=== PATIENT | male | born 1995 | race Caucasian/White ===

== ENCOUNTER 2019-04-03 06:14 | Emergency (ER) | payer OTHER ==
[2019-04-03 06:48] VITALS: BP 131/79; PULSE 116; TEMP 100; BMI 21.1
[2019-04-03] MEDS ORDERED: ONDANSETRON *ODT* 4 MG TABLET SL ONE (08:08)
[2019-04-03] MEDS ORDERED: ONDANSETRON *ODT* 4 MG TABLET ONE (08:09)
--- NOTE | 2019-04-03 08:30 | PDOC ---
History of Present Illness - General History Source: Patient Exam Limitations: Clinical Condition - History of Present Illness Initial Comments: 04/03/19 08:27 Patient with no significant past medical history present with complaint of 1 day history of nasal congestion, sore throat, body aches, fever, chills, intermittent headache and nausea. Patient report one episode of loose stool yesterday. Denies recent travel or sick contact. Patient did not get a flu vaccine. Patient did not take anything for symptoms Is this a multiple visit Asthma Patient?: No Timing/Duration: 24 hours <Reyes William - Last Filed: 04/03/19 09:34> <Bari Crowder - Last Filed: 04/03/19 11:57> - General Chief Complaint: Vomiting/Diarrhea Stated Complaint: FLU LIKE SYMPTOMS Time Seen by Provider: 04/03/19 07:47 Past History - Past Medical History COPD: No - Psycho Social/Smoking Cessation Hx Smoking History: Never smoked <Reyes William - Last Filed: 04/03/19 09:34> <Bari Crowder - Last Filed: 04/03/19 11:57> - Past Medical History Allergies/Adverse Reactions: Allergies Allergy/AdvReac Type Severity Reaction Status Date / Time No Known Allergies Allergy Verified 04/03/19 06:44 Home Medications: Ambulatory Orders Benzonatate [Tessalon Pearls -] 100 mg PO Q8H PRN #20 capsule 04/03/19 Ipratropium [place] 2 spray NS BID PRN #1 spray 04/03/19 Ondansetron [Zofran *Odt*] 4 mg SL Q8H #12 od.tablet 04/03/19 Oseltamivir Phosphate [Tamiflu -] 75 mg PO DAILY #10 capsule 04/03/19 Review of Systems - Review of Systems Able to Perform ROS?: Yes Is the patient limited [place] proficient: No Constitutional: Yes: Chills, Fever, Malaise HEENTM: Yes: Symptoms Reported, See HPI, Nose Congestion, Throat Pain. No: Eye Pain, Blurred Vision, Tearing, Recent change in vision, Double Vision, Cataracts , Ear Pain, Ocular Prothesis, Ear Discharge, Nose Pain, Tinnitus, Nose Bleeding , Hearing Loss, Throat Swelling, Mouth Pain, Dental Problems, Difficulty Swallowing, Mouth Swelling, Other Respiratory: Yes: Symptoms reported, See HPI, Cough. No: Orthopnea, Shortness of Breath, SOB with Exertion, SOB at Rest, Stridor, Wheezing, Productive cough, Hemoptysis, Other Cardiac (ROS): No: Symptoms Reported, See HPI, Chest Pain, Edema, Irregular Heart Rate, Lightheadedness, Palpitations, Syncope, Chest Tightness, Other ABD/GI: Yes: Symptoms Reported, See HPI, Diarrhea, Nausea. No: Blood Streaked Bowels, Constipated, Difficulty Swallowing, Poor Appetite, Vomiting, Indigestion , Abdominal cramping Musculoskeletal: No: Symptoms Reported Integumentary: No: Symptoms Reported, Rash Neurological: Yes: Symptoms reported, See HPI, Headache. No: Numbness, Paresthesia, Pre-Existing Deficit, Weakness, Dizziness All Other Systems: Reviewed and Negative <Reyes William - Last Filed: 04/03/19 09:34> *Physical Exam - Vital Signs Last Vital Signs Temp Pulse Resp BP Pulse Ox 100.0 F H 116 H 18 131/79 97 04/03/19 06:41 04/03/19 06:41 04/03/19 06:41 04/03/19 06:41 04/03/19 08:13 - Physical Exam 04/03/19 08:25 GENERAL: Well developed, well nourished. Awake and alert. No acute distress. HEENT: Normocephalic, atraumatic. PERRLA, EOMI. No conjunctival pallor. Sclera are non-icteric. Moist mucous membranes. Oropharynx is clear. NECK: Supple. Full ROM. CARDIOVASCULAR: Regular rate and rhythm. No murmurs, rubs, or gallops. Distal pulses are 2+ and symmetric. PULMONARY: No evidence of respiratory distress. Lungs clear to auscultation bilaterally. No wheezing, rales or rhonchi. ABDOMINAL: Soft. Non-tender. Non-distended. No rebound or guarding. No organomegaly. Normoactive bowel sounds. MUSCULOSKELETAL Normal range of motion at all joints. SKIN: Warm and dry. Normal capillary refill. No rashes. No cyanosis. NEUROLOGICAL: Alert, awake, appropriate. Gait is normal without ataxia. PSYCHIATRIC: Cooperative. Good eye contact. Appropriate mood General Appearance: Yes: Nourished, Appropriately Dressed. No: Apparent Distress <Reyes Wililam - Last Filed: 04/03/19 09:34> - Vital Signs Last Vital Signs Temp Pulse Resp BP Pulse Ox 100.0 F H 116 H 18 131/79 97 04/03/19 06:41 04/03/19 06:41 04/03/19 06:41 04/03/19 06:41 04/03/19 08:13 <Bari Crowder - Last Filed: 04/03/19 11:57> ED Treatment Course - Medications Given in the ED: ED Medications Discontinued Medications Generic Name Dose Route Start Last Admin Trade Name Larissa PRN Reason Stop Dose Admin Ondansetron HCl 4 mg 04/03/19 08:08 04/03/19 08:26 Zofran Odt - SL 04/03/19 08:09 4 mg ONCE ONE Administration <Bari Crowder - Last Filed: 04/03/19 11:57> Medical Decision Making - Medical Decision Making 04/03/19 08:28 Patient with no significant past medical history present with complaint of 1 day history of nasal congestion, sore throat, body aches, fever, chills, intermittent headache and nausea. Patient report one episode of loose stool yesterday. Denies recent travel or sick contact. Patient did not get a flu vaccine. Patient did not take anything for symptoms Clinical exam significant for low temp of 100.0 F otherwise unremarkable exam. No pharyngeal erythema. lungs clear to auscultation bilateral. No abdominal tenderness. Patient symptoms likely viral syndrome versus less likely strep. Rapid strep and rapid flu test ordered. Zofran was 4 mg sublingual ordered for nausea 04/03/19 08:59 Rapid flu positive for influenza A. Rapid strep negative. Patient stable for outpatient management on Tamiflu for influenza and Zofran and Tessalon Perles for URI symptoms with viral gastroenteritis with advised to increase fluid intake and take Motrin as needed for fever with PCP follow-up <Reyes William - Last Filed: 04/03/19 09:34> - Medical Decision Making 04/03/19 11:57 I reviewed the case of the mid-level practitioner and was available for consultation while in the emergency department <Bari Crowder - Last Filed: 04/03/19 11:57> Discharge - Discharge Information Problems reviewed: Yes - Admission No <Reyes Wliliam - Last Filed: 04/03/19 09:34> <Bari Crowder - Last Filed: 04/03/19 11:57> - Discharge Information Clinical Impression/Diagnosis: Influenza A, Viral syndrome Fever Qualifiers: Fever type: unspecified Qualified Code(s): R50.9 - Fever, unspecified Condition: Stable Disposition: HOME - Additional Discharge Information Prescriptions: Benzonatate [Tessalon Pearls -] 100 mg PO Q8H PRN #20 capsule PRN Reason: Cough Ipratropium [place] 2 spray NS BID PRN #1 spray PRN Reason: nasal congestion Ondansetron [Zofran *Odt*] 4 mg SL Q8H #12 od.tablet Oseltamivir Phosphate [Tamiflu -] 75 mg PO DAILY #10 capsule - Follow up/Referral Referrals: Lupe Rocha [Primary Care Provider] - - Patient Discharge Instructions Patient Printed Discharge Instructions: Influenza, DI for Viral Syndrome Additional Instructions: Your strep test was negative. Your flu test is positive for influenza A. Take prescribed medication as prescribed for symptoms. Increase fluid intake. Alternate between Tylenol Motrin as needed for fever. Follow-up with your primary care - Post Discharge Activity
== END 2019-04-03 09:08 | disposition home or self-care (01) ==
LOC: JER 06:14
DX: J09.X2 Influenza due to identified novel influenza A virus with other respiratory manifestations (principal); B34.9 Viral infection, unspecified
CPT/HCPCS: 87070; 87804; 87880; 99283-25; Q0162

== ENCOUNTER 2020-12-15 11:26 | Emergency (ER) | payer OTHER ==
[2020-12-15 11:36] VITALS: BP 126/85; PULSE 78; TEMP 98; BMI 23.3
== END 2020-12-15 14:21 | disposition home or self-care (01) ==
LOC: JERFT 11:26
DX: S06.0X1A Concussion with loss of consciousness of 30 minutes or less, initial encounter (principal); W18.2XXA Fall in (into) shower or empty bathtub, initial encounter
CPT/HCPCS: 70450-TC; 99284-25